=== PATIENT | female | born 1970 | race Two or more races ===

== ENCOUNTER 2020-06-03 13:50 | Inpatient (IN) | payer MEDICAID ==
[~2020-06-03] VITALS: Ht 154.9 cm; Wt 88.5 kg
--- NOTE | 2020-06-03 14:03 | NUR ---
ED Nurse Note: pt to room, aware of pt
--- NOTE | 2020-06-03 14:13 | Emergency Room Report ---
History of Present Illness General Chief Complaint: Dyspnea/Respdistress Source: Patient Present Illness HPI 49-year-old female with history of asthma presents with chief complaint of shortness of breath and wheezing. She states that despite her albuterol inhalers, she has had shortness of breath since last night. Denies chest pain, hemoptysis, fevers, chills, Covid contacts, recent travel or antibiotic use. She denies recent history of hospitalization or intubation. Denies recent trauma, surgery, or immobilization. The patient's symptoms were gradual onset, severity was moderate, duration since 2 days. Quality: Wheezing Past medical history: Asthma Past surgical history: Denies Smoking: Denies Alcohol use: Denies Drug use: Denies Review of systems: CONST: No fevers or chills, No night sweats PULMONARY: No productive cough, ++ shortness of breath CARDIAC: No chest pain, No palpitations GI: No vomiting, No diarrhea , No melena_or_BRBPR : No dysuria, No hematuria, No discharge NEURO: No new_focal_weakness_or_numbness, No confusion, No vision changes 14 point Review of Systems is otherwise negative except per HPI Physical Exam: GENERAL: Awake_alert_ nontoxic, no acute distress Spo2 95% on RA -normal EYES: Extraocular muscles are intact. Conjunctivae clear. Lids without swelling ENT: External nose and ear normal_in_appearance. Oropharynx clear. Head_atraumatic, Moist_oral_mucosa NECK: No JVD. No meningismus. No thyromegaly. Supple. Trachea midline RESP: Increased work of breathing. Speaking in short clipped sentences. Subcostal retractions. Diffuse inspiratory and expiratory wheezing Left lower lobe crackles CARDIAC: Regular rate and regular rhytm. No_significant pedal edema. ABDOMEN: Soft. Nondistended. Nontender_No_rebound_or_guarding. MSK: Normal muscle tone, without rigidity. Extremities without asymmetric deformity or swelling. SKIN: Warm and dry. No visible cyanosis or pallor NEUROLOGIC: Alert, oriented x3. Motor_and_sensation_grossly_intact. No truncal ataxia. Gait_normal Psych: Normal mood and affect, normal judgment and insight - COORDINATION OF CARE Case was discussed with: Patient , Patient's Physician Any labs and imaging that were ordered were interpreted as part of the medical decision making: Medical Decision Making/Plan: Differential diagnosis includes: asthma exacerbation, pneumonia, bronchitis, pneumothorax, pulmonary embolism, pulmonary edema among others. The patients presentation seems most consistent with an asthma exacerbation given their wheezing on exam with a history of asthma. CXR shows left lower lobe pneumonia. No evidence of pneumothorax, or pulmonary edema. Covid swab negative. Labs are unremarkable. The patient has no significant risk factors for pulmonary embolism, and has a more likely alternate cause given their wheezing on exam, thus further workup was deferred given that PE is unlikely. The patient was given albuterol, atrovent, steroids, and had serial reassessments. Although the patient has had some minimal improvement in their symptoms, they still have persistent severe dyspnea and their symptoms are unlikely to resolve with typical outpatient therapy so the patient will be admitted for further intensive serial treatments with bronchodilators and close observation. I spoke with Dr. Urban, and reviewed the patients presentation, workup, results, and treatment. They will admit the patient for further care and evaluation, and assume care of the patient at this time. - CRITICAL CARE NOTE - I spent 35 minutes of critical care time. This time excludes any separately billable procedures. Given the patients presentation with status_asthmaticus, there existed the potential for imminent deterioration in the patient's condition due to respiratory compromise. Organ systems at risk for failure without immediate intervention include pulmonary / respiratory. This time was spent reviewing the patients records, reviewing vital signs, reassessing the patients clinical status, discussing the case and care with staff and consultants, and performing high-complexity medical decision making. I considered the addition of positive airway pressure ventilation at this time, but decided to defer it at this time given the possibility of breath stacking. I also considered the need for intubation, but at this time the patient is protecting their airway and maintaining their saturation on supplemental oxygen so will defer intubation at this time, although they will be closely monitored for any further deterioration. 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 [employer]ATION: No Patient History Last Menstrual Period: 3 weeks Now: No Nursing Documentation-PMH Past Medical History: No History, Except For Hx Hypertension: Yes Hx Asthma: Yes Physical Exam Vital Signs Date Time Temp Pulse Resp B/P (MAP) Pulse Ox O2 Delivery O2 Flow Rate FiO2 06/03/20 13:54 98.1 85 32 147/78 (101) 95 Room Air Sp02 EP Interpretation: reviewed, normal Medical Decision Making Diagnostic Impression: Primary Impression: Asthma exacerbation Additional Impressions: Wheezing Anemia EKG Diagnostic Results Troponin ordered: Yes When was troponin ordered?: Jun 03, 2020 EKG Time: 14:28 Rate: normal Rhythm: NSR ST Segments: no acute changes ASA given to the pt in ED: No - NO ACS PA Scribe Text 12-lead EKG (interpreted by me) Time: 1513 Indication: Rhythm analysis Tracing visualized and Interpreted by me. Rhythm: Normal sinus rhythm Rate: 68 bpm QTc: 431 Morphology: No_significant_ST_elevations_or_depressions, No STEMI Impression: Normal_sinus_rhythm_without_significant_abnormality Rhythm Strip Diag. Results Rhythm Strip Time: 14:29 EP Interpretation: yes Rate: 95 Rhythm: NSR, no PVC's, no ectopy Chest X-Ray Diagnostic Results Chest X-Ray Diagnostic Results : PA Scribe Text Chest X-Ray: Views: [ 1 ] view(s) Indication: SOB Findings: Normal heart size. Mediastinum normal. No pneumothorax Impression: Left lower lobe pneumonia versus atelectasis The X-ray(s) were independently viewed and interpreted contemporaneously Electronically signed by Lesley gordon DO Reevaluation Time: 15:30 Last Vital Signs Date Time Temp Pulse Resp B/P (MAP) Pulse Ox O2 Delivery O2 Flow Rate FiO2 06/03/20 13:54 98.1 85 32 147/78 (101) 95 Room Air Status: improved Disposition: ADMITTED INPATIENT Admit Decision Time: 16:00 Condition: Stable Lesley Barreto D.O. Jun 03, 2020 14:13
[2020-06-03] MEDS ORDERED: Ipratropium Bromide Inhaler INH SCH (14:15)
[2020-06-03] MEDS ORDERED: dexAMETHasone 10mg/ml Inj IV ONE (14:15)
[2020-06-03] MEDS ORDERED: Azithromycin 250mg tab ORAL ONE (14:15)
[2020-06-03] MEDS ORDERED: Albuterol 90mcg Inhaler 8gm INH PRN (14:15)
[2020-06-03] MEDS ORDERED: cefTRIAXone 1 GM in NS 55 ML IVPB ONE (14:15)
[2020-06-03] MEDS ORDERED: Albuterol/Ipratropium 3ml neb ONE (14:47)
[2020-06-03] MEDS ORDERED: ALBUTEROL SULF8.5 G1 INH (14:48)
--- NOTE | 2020-06-03 14:50 | Diagnostic Imaging Report ---
EXAM: XR Chest, 1 View CLINICAL HISTORY: SOB TECHNIQUE: Frontal view of the chest. COMPARISON: None FINDINGS: Hardware: None. Lungs/pleura: Mild left lower lobe opacity may represent atelectasis versus pneumonia. No other focal consolidation. No pleural effusion or pneumothorax. Heart/mediastinum: Normal. No cardiomegaly. Soft tissues: Unremarkable. Bones: No acute fracture. Upper abdomen: Normal. IMPRESSION: Mild left lower lung opacity may represent atelectasis versus pneumonia.
--- NOTE | 2020-06-03 14:53 | NUR ---
ED Nurse Note: RT at bed side
[2020-06-03 15:02] VITALS: BP 148/89
[2020-06-03 15:03] LABS: ANION GAP 7 mmol/L (5-15); BLOOD UREA NITROGEN 12 mg/dL (7-18); CALCIUM 8.3 MG/DL (8.5-10.1); CARBON DIOXIDE 29 MMOL/L (21-32); CHLORIDE 102 MMOL/L (98-107); CREATININE 0.6 MG/DL (0.55-1.30); EOSINOPHILS % (AUTO) 6.7 % (0.0-3.0); HEMATOCRIT 32.2 % (37.0-47.0); HEMOGLOBIN 9.5 G/DL (12.0-16.0); LYMPHOCYTES % (AUTO) 15.2 % (20.0-45.0); MEAN CORPUSCULAR VOLUME 64 FL (80-99); MONOCYTES % (AUTO) 7.7 % (1.0-10.0); NEUTROPHILS % (AUTO) 69.4 % (45.0-75.0); PLATELET COUNT 326 K/UL (150-450); POTASSIUM 3.8 MMOL/L (3.5-5.1); RED BLOOD COUNT 5.02 M/UL (4.20-5.40); RED CELL DISTRIBUTION WIDTH 16.3 % (11.6-14.8); SODIUM 137 MMOL/L (136-145); WHITE BLOOD COUNT 6.8 K/UL (4.8-10.8)
[2020-06-03] MEDS: Albuterol/Ipratropium 3ml neb HHN SCH ×3 (15:07→19:20)
--- NOTE | 2020-06-03 15:07 | NUR ---
ED Nurse Note:pt. came from home with asthma exacerbation ,covid swab is negative, VSS, blood sent to labs, placed on associate professor of automation,
[2020-06-03 15:13] LABS: ALANINE AMINOTRANSFERASE 19 U/L (12-78); ALBUMIN 3.1 G/DL (3.4-5.0); ALBUMIN/GLOBULIN RATIO 0.8 (1.0-2.7); ALKALINE PHOSPHATASE 84 U/L (46-116); ASPARTATE AMINO TRANSFERASE 15 U/L (15-37); BILIRUBIN,TOTAL 0.3 MG/DL (0.2-1.0); PHOSPHORUS 2.4 MG/DL (2.5-4.9)
[2020-06-03 15:24] LABS: CREATINE KINASE 126 U/L (26-308); FERRITIN 6 NG/ML (8-388); LACTATE DEHYDROGENASE 443 U/L (81-234)
--- NOTE | 2020-06-03 16:46 | NUR ---
REPORT GIVEN TO JUSTEN GOFF IN MED /SURG UNIT PATIENT IS TO BE TRANSFERD TO ROOM 420-2 VIA RNEY
--- NOTE | 2020-06-03 16:50 | NUR ---
NURSE NOTES: received report from SHELL Hernandez, ER
--- NOTE | 2020-06-03 17:05 | NUR ---
NURSE NOTES: patient was admitted from ER to room 420-[address]Alfred Box care. Dx of difficult breathing. no respiratory distress noted on room air. patient breathes comfortably after breathing treatment at ER. no pain at this time. A&Ox4, verbally responsive. IV on LAC 22 saline lock. no skin issues. Covid negative. ambulatory. bed in the lowest position and locked. call light within reach, will continue to provide plan of care. Notified Dr. Lis Box for admission orders. MD will call in a few minutes.
[2020-06-03 17:10] VITALS: BP 138/96
--- NOTE | 2020-06-03 17:10 | NUR ---
NURSE NOTES: VS 138/96, 80, 20, 95% om room air. 98.6
[2020-06-03 17:12] LABS: APPEARANCE,URINE CLEAR; BILIRUBIN, URINE NEGATIVE (NEGATIVE); COLOR,URINE PALE YELLOW; GLUCOSE, URINE (UA) NEGATIVE (NEGATIVE); KETONES,URINE NEGATIVE (NEGATIVE); LEUKOCYTE ESTERASE ,URINE 2+ (NEGATIVE); NITRITE,URINE NEGATIVE (NEGATIVE); PH,URINE 6 (4.5-8.0); PROTEIN,URINE NEGATIVE (NEGATIVE); UROBILINOGEN,URINE NORMAL MG/DL (0.0-1.0)
[2020-06-03] MEDS ORDERED: Zolpidem 5mg tab ORAL PRN (18:00)
[2020-06-03] MEDS ORDERED: Piperacillin/Tazobactam 2.25 GM in D5W 55 ML IV SCH (18:00)
--- NOTE | 2020-06-03 19:20 | NUR ---
NURSE NOTES: Received report from SHELL Keith. AAO x 4, on room air without respiratory distress. Denies pain or discomfort. Able to make needs known. Breathing treatment with RT at bedside. IV site intact and patent. Bed locked, lowest position, alarm on, side rails up, call light within reach. Will continue to monitor.
--- NOTE | 2020-06-03 19:23 | NUR ---
NURSE HAND-OFF: Important Events on Shift new admission, breathing treatment, IV ATB Patient Status: stable,. no SOB at this time Diet: regular Pending Orders: n/a Pending Results/Labs:n/a Pending MD notification:n/a Latest Vital Signs: Temperature 98.6 , Pulse 80 , B/P 138 /96 , Respiratory Rate 20 , O2 SAT 95 , Room Air, O2 Flow Rate . Vital Sign Comment: stable Latest Arroyo Fall Score: 20 Fall Risk: Low Risk Safety Measures: Call light Within Reach, Bed Alarm Zone 1, Side Rails Side Rails x2, Bed position Low and Locked. Fall Precautions: Report given to SHELL Eric
[2020-06-03 20:00] VITALS: BP 155/95
[2020-06-03] MEDS: Solu-MEDROL 40mg Inj IVP SCH (20:25)
[2020-06-03] MEDS: Zosyn 3.375gm q8h **Extended infusion IVPB SCH ×2 (21:19)
[2020-06-04] VITALS: BP 153/73
[2020-06-04 04:00] VITALS: BP 148/105
[2020-06-04] MEDS: Zosyn 3.375gm q8h **Extended infusion IVPB SCH ×6 (05:11→21:01)
--- NOTE | 2020-06-04 06:21 | NUR ---
NURSE HAND-OFF: Important Events on Shift:No SOB or respiratory distress Patient Status: stable Diet: reg Pending Orders: Pending Results/Labs: Pending MD notification: Latest Vital Signs: Temperature 99.5 , Pulse 90 , B/P 148 /105 , Respiratory Rate 19 , O2 SAT 93 , Room Air, O2 Flow Rate 2.0 . Vital Sign Comment: Latest Arroyo Fall Score: 20 Fall Risk: Low Risk Safety Measures: Call light Within Reach, Bed Alarm Zone 1, Side Rails Side Rails x2, Bed position Low and Locked. Fall Precautions: Elzbieta Norris Patient Fall Education Addendum: 06/04/20 at 0734 by NAS SNELL RN RN HAND-OFF: Report given to
--- NOTE | 2020-06-04 07:34 | NUR ---
NURSE NOTES: Pt c/o SOB and wheezing sound noted. Applied NC 2L and HOB elevated
[2020-06-04] MEDS: Albuterol/Ipratropium 3ml neb HHN SCH ×4 (07:53→20:01)
[2020-06-04 08:00] VITALS: BP 151/89
--- NOTE | 2020-06-04 08:02 | NUR ---
NURSE NOTES: Received report from Keturah GOFF, pt a/a/o x4 laying in bed with no signs of distress or other issues at this time. patient stated that starting having cough last night. no skin issues noted. IV on the right arm gauge#22. call light within reach, bed in lowest position. side rales up x2. I will f/u as needed.
[2020-06-04] MEDS: Solu-MEDROL 40mg Inj IVP SCH ×2 (08:26→20:12)
--- NOTE | 2020-06-04 10:32 | History & Physical ---
History and Physical History & Physicial Hp dictated # [id number] Akira Box MD Jun 04, 2020 10:32
[2020-06-04] MEDS ORDERED: guaiFENesin 100mg/5ml Liq ud ORAL PRN (10:45)
--- NOTE | 2020-06-04 11:45 | History and Physical Report ---
DATE OF ADMISSION: 06/03/2020 CHIEF COMPLAINT: Shortness of breath. HISTORY OF PRESENT ILLNESS: The patient is a 49-year-old female with history of asthma who started to get short of breath about two days ago. She states that she could not even get the inhaler down her lung. She usually takes albuterol. Last night, her shortness of breath got much worse and she was panicking and finally came to the emergency room. She was admitted with asthma exacerbation. PAST MEDICAL HISTORY: The patient has had asthma for about more than 20 years, otherwise she does not have any history of diabetes or hypertension. MEDICATIONS: Reviewed in the EMR. ALLERGIES: No known drug allergies. SOCIAL HISTORY: No history of smoking or alcohol abuse. The patient lives with a friend. REVIEW OF SYSTEMS: As above. The patient did not have any sputum production. PHYSICAL EXAMINATION: GENERAL: The patient is a 49-year-old female. She feels better. VITAL SIGNS: Blood pressure is 151/89, pulse 67, temperature 97.7, and respiratory rate is 20. HEENT: [place] conjunctivae. Anicteric sclerae. NECK: Supple. LUNGS: Diffuse expiratory wheezing. HEART: S1 and S2 without murmurs or rubs. ABDOMEN: Soft, nontender. EXTREMITIES: No cyanosis or edema. LABORATORY FINDINGS: CBC shows a WBC of 6900, hematocrit is 32.2, hemoglobin is 9.5, platelets 326,000. Chemistry panel shows serum sodium of 137, potassium 3.8, chloride 102, BUN 12, creatinine 0.6, blood sugar 121. UA shows 5 to 10 wbc's per high-power field, no protein. ASSESSMENT: This is a 49-year-old female who was admitted for acute asthma exacerbation. Chest x-ray also shows some mild left lower lung opacity which may represent atelectasis versus pneumonia. She may have also urinary tract infection based on leukocyturia. PLAN: The patient was started on IV steroids, bronchodilators, antibiotics, oxygen. Based on her clinical findings and progresses, adjustment will be made in the patient's regimen. Akira Box M.D. DR: Bebe JOB#: [id number] CC:
[2020-06-04 12:00] VITALS: BP 146/82
[2020-06-04 16:00] VITALS: BP 138/77
--- NOTE | 2020-06-04 18:59 | NUR ---
NURSE HAND-OFF: Important Events on Shift: Patient Status: stable/ full code Diet: regular Pending Orders: [] Pending Results/Labs:am labs Pending MD notification: Latest Vital Signs: Temperature 97.7 , Pulse 88 , B/P 138 /77 , Respiratory Rate 17 , O2 SAT 95 , Nasal Cannula, O2 Flow Rate 2.0 . Vital Sign Comment: stable Latest Arroyo Fall Score: 20 Fall Risk: Low Risk Safety Measures: Call light Within Reach, Bed Alarm Zone 1, Side Rails Side Rails x2, Bed position Low and Locked. Fall Precautions: pt is able to ambulate with steady gait [place] Patient Fall Education Report given to Keturah GOFF, pt in stable condition.
--- NOTE | 2020-06-04 19:40 | NUR ---
NURSE NOTES: Received report from SHELL Pennington. Sleeping in bed, on room air without respiratory distress. Able to make needs known. Breathing treatment with RT at bedside. IV site intact and patent. Bed locked, lowest position, alarm on, side rails up, call light within reach. Will continue to monitor.
[2020-06-04 20:00] VITALS: BP 144/79
--- NOTE | 2020-06-04 20:14 | Consultation ---
DATE OF CONSULTATION: 06/04/2020 PULMONARY CONSULTATION CONSULTING PHYSICIAN: Carlos Elder MD. HISTORY OF PRESENT ILLNESS: This is a 49-year-old female, history of asthma. She came to the hospital with exacerbation of asthma. She states she has albuterol at home, but no inhaled steroids and she has reactions to steroids. She was admitted to the hospital for aspiration, COPD/asthma. PAST MEDICAL HISTORY: Asthma only. The patient denies any headaches, hematemesis, melena, or hematochezia. PHYSICAL EXAMINATION: GENERAL: Reveals a 49-year-old. VITAL SIGNS: Blood pressure is 130/70, heart rate 84, respiratory rate 18, O2 saturation 98% on 2 L of oxygen. HEENT: Unremarkable. LUNGS: Clear breath sounds bilaterally. ABDOMEN: Soft. EXTREMITIES: Nonfocal. She has a few rhonchi. LABORATORY DATA: Lab testing shows normal CBC and BMP. IMAGING STUDIES: Notable for an x-ray chest, which showed mild left lower lobe opacity suspicious for pneumonia. IMPRESSION: 1. Left lower lobe pneumonia. 2. Asthma with exacerbation. DISCUSSION: Admit to the hospital. Continue broad-spectrum antibiotics, breathing treatments, pulmonary hygiene, IV steroids, oxygen. We will follow carefully. Carlos Elder M.D. DR: Mariam JOB#: [id number] CC:
[2020-06-05] VITALS: BP 153/90
[2020-06-05 04:00] VITALS: BP 144/77
[2020-06-05] MEDS: Zosyn 3.375gm q8h **Extended infusion IVPB SCH ×2 (05:00)
--- NOTE | 2020-06-05 06:56 | NUR ---
NURSE HAND-OFF: Important Events on Shift:monitor SOB Patient Status: stable Diet: reg Pending Orders: Pending Results/Labs: Pending MD notification: Latest Vital Signs: Temperature 98.2 , Pulse 79 , B/P 144 /77 , Respiratory Rate 16 , O2 SAT 94 , Nasal Cannula, O2 Flow Rate 2.0 . Vital Sign Comment: [] Latest Arroyo Fall Score: 20 Fall Risk: Low Risk Safety Measures: Call light Within Reach, Bed Alarm Zone 1, Side Rails Side Rails x2, Bed position Low and Locked. Fall Precautions: Elzbieta Norris Patient Fall Education Addendum: 06/05/20 at 0735 by NAS SNELL RN RN HAND-OFF: Report given to
[2020-06-05] MEDS: Albuterol/Ipratropium 3ml neb HHN SCH ×2 (07:34→12:37)
--- NOTE | 2020-06-05 07:45 | NUR ---
NURSE NOTES: Received report from SHELL Eric. Patient is in bed, awake and oriented x 4, no SOB, bed in lowest position with breaks engaged and alarm on, no pain or discomfort per assessment, IV line present on PATRICK, on room air, will continue to monitor and proceed with plan of care, call light within reach
[2020-06-05 08:00] VITALS: BP 142/75
[2020-06-05] MEDS: Solu-MEDROL 40mg Inj IVP SCH (08:38)
[2020-06-05 12:00] VITALS: BP 140/84
--- NOTE | 2020-06-05 12:53 | NUR ---
NURSE NOTES: Patient was discharged in stable condition at 1253 pm, discharge paper works signed, no missing belongings reported, patient was given prescriptions for new meds from Dr. Akira Box, no c/o any discomfort or pain upon discharge, pt alert and oriented x 4 with steady gait. IV line and ID band removed.
--- NOTE | 2020-06-05 13:47 | Pulmonology Progress Note ---
Subjective Interval Events: Feeling better Constitutional: Reports: no symptoms HEENT: Repors: no symptoms Respiratory: Reports: no symptoms Cardiovascular: Reports: no symptoms Gastrointestinal/Abdominal: Reports: no symptoms Genitourinary: Reports: no symptoms Allergies: Coded Allergies: CODEINE (Verified Allergy, Severe, 06/03/20) nausea Objective Last 24 Hour Vital Signs Date Time Temp Pulse Resp B/P (MAP) Pulse Ox O2 Delivery O2 Flow Rate FiO2 06/05/20 12:38 74 18 99 Room Air 21 70 16 95 06/05/20 12:00 98.1 97 20 140/84 (102) 96 06/05/20 09:00 Nasal Cannula 2.0 06/05/20 08:00 99.0 90 19 142/75 (97) 93 06/05/20 07:34 98 Room Air 21 06/05/20 07:32 80 22 99 Room Air 21 72 18 94 06/05/20 04:00 98.2 79 16 144/77 (99) 94 06/05/20 00:00 98.4 80 16 153/90 (111) 95 06/04/20 21:00 Nasal Cannula 2.0 06/04/20 20:11 86 20 99 Room Air 21 06/04/20 20:01 96 Room Air 21 06/04/20 20:01 85 20 96 Room Air 21 06/04/20 20:00 97.7 82 18 144/79 (100) 95 06/04/20 16:00 97.7 88 17 138/77 (97) 95 06/04/20 15:39 89 20 98 Room Air 21 88 20 93 Intake and Output 06/04/20 06/05/20 19:00 07:00 Intake Total 1160 ml 400 ml Balance 1160 ml 400 ml Intake Oral 1160 ml Other 400 ml # Voids 2 2 # Bowel Movements 1 General Appearance: no acute distress HEENT: normocephalic Respiratory: chest wall non-tender Cardiovascular: normal peripheral pulses Abdomen: normal bowel sounds Microbiology Date/Time Source Procedure Growth Status 06/03/20 16:25 Urine,Clean Catch Urine Culture - Preliminary NO GROWTH Resulted 06/03/20 14:15 Nasopharynx SARS-CoV-2 RdRp Gene Assay - Final Complete Current Medications Medications (Trade) Dose Ordered Sig/Delicia Route PRN Reason Start Time Stop Time Status Last Admin Dose Admin Acetaminophen (Tylenol) 650 mg Q4H PRN ORAL Mild Pain (Pain Scale 1-3) 06/03/20 18:00 07/03/20 17:59 Albuterol/ Ipratropium (Albuterol/ Ipratropium) 3 ml QIDRT HHN 06/03/20 19:00 06/08/20 18:59 06/05/20 12:37 Dextrose (Dextrose 50%) 25 ml Q30M PRN IV Hypoglycemia 06/03/20 18:00 09/01/20 17:59 Dextrose (Dextrose 50%) 50 ml Q30M PRN IV Hypoglycemia 06/03/20 18:00 09/01/20 17:59 Guaifenesin (Robitussin) 100 mg Q4H PRN ORAL For Cough 06/04/20 10:45 09/02/20 10:44 Zolpidem Tartrate (Ambien) 5 mg HSPRN PRN ORAL Insomnia 06/03/20 18:00 06/10/20 17:59 Assessment/Plan Assessment/Plan IMPRESSION: 1. Left lower lobe pneumonia. 2. Asthma with exacerbation. DISCUSSION: Continue broad-spectrum antibiotics, breathing treatments, pulmonary hygiene, IV steroids, oxygen. I will follow carefully. Discussed with Dr. Isauro Craig planning for home Shirley Loredo Omar Syed MD Jun 05, 2020 13:47
--- NOTE | 2020-06-05 17:01 | NUR ---
CASE MANAGEMENT:INITIAL REVIEW 49 YR OLD FEMALE FROM HOME CC;RESPIRATORY DISTRESS. DYSPNEA. SI;ASTHMA EXACERBATION 98.6 90 22 1440/80 95% 2L NC BG 121 PHOS 2.4 CA 8.3 ALB 3.1 UA+ LEUKOCYTE ESTERASE, WBC, SQUAMOUS EPITH CELLS COVID RAPID ~ NEGATIVE CXR ~ Mild left lower lung opacity may represent atelectasis versus pneumonia. IS;ROCEPHIN IV DECADRON IV MAG SULFATE IV ZITHROMAX IV ATROVENT INH ADMITTED TO MED SURG MED SURG STATUS DCP;PATIENT IS FROM HOME
--- NOTE | 2020-06-06 14:37 | Cardiology Report ---
APPROVED REPORT EKG Measurement Heart [id number] <Conclusion> Normal sinus rhythm Normal ECG
--- NOTE | 2020-06-07 08:44 | Discharge Summary ---
Discharge Summary Discharge Summary _ DATE OF ADMISSION: 06/03/2020 DATE OF DISCHARGE: 06/05/2020 DISCHARGED BY: Dr. Akira Box REASON FOR ADMISSION: 49 years old female with past medical history of asthma , presented with complaint of shortness of breath and wheezing. Patient reported shortness of breath since the last night despite use of albuterol inhaler. She denied chest pain. No hemoptysis. No fever or chills. Rapid COVID-19 was negative. Vital signs were stable. Laboratory work-up revealed no leukocytosis , hemoglobin 9.5 , hematocrit 32.2. Stable electrolytes and renal parameters. Glucose 121. Lactic acid 1.3. Stable LFT. Troponin negative. EKG revealed sinus rhythm, no acute ischemic changes . Urinalysis revealed borderline pyuria and few bacteria , +1 leukocyte esterase. Chest x-ray demonstrated mild left lower lung opacity, possibly representing atelectasis versus pneumonia. Patient subsequently admitted with asthma exacerbation, possible pneumonia for further management. CONSULTANTS: pulmonary Dr. Elder HOSPITAL COURSE: Patient admitted to medical surgical floor . Patient started on IV steroids. Patient started on nebulizing treatment with bronchodilator . Telecommunication Tower Technician followed. Per news reel cameraman patient had left lower lobe pneumonia. Patient started on empiric antibiotic. Supplemental oxygen provided and titrated to keep pulse oximetry above 92%. Blood cultures were negative. Urine culture revealed mixed urogenital contaminants. Antitussive provided as needed. As patient clinically improved, steroid tapered. Patient clinically stabilized and was ready for discharge home. FINAL DIAGNOSES: Acute asthma exacerbation Left lower lobe pneumonia DISCHARGE MEDICATIONS: See Medication Reconciliation list. DISCHARGE INSTRUCTIONS: Patient was discharged home. Follow-up with a primary care provider in 1 week. I have been assigned to dictate discharge summary for this account. I was not involved in the patient's management. Tiera Hooker NP Jun 07, 2020 08:44
--- NOTE | 2020-06-07 14:45 | NUR ---
INSURANCE DC SUMMARY FAXED TO [facility] [phone] PH [phone] [facility] [phone] PH [phone]
== END 2020-06-05 13:00 | disposition home or self-care (01) | DRG 139 ==
LOC: EMR 14:15 → EDBEDREQ 16:37 → 4E 16:40 → EMR 16:54
DX: J18.9 Pneumonia, unspecified organism (principal); J45.901 Unspecified asthma with (acute) exacerbation; N39.0 Urinary tract infection, site not specified; J45.909 Unspecified asthma, uncomplicated; Z88.6 Allergy status to analgesic agent
CPT/HCPCS: 36415; 71045; 80053; 81003; 82550; 82728; 83605; 83615; 83690; 83735; 83880; 84100; 84484; 84702; 85025; 85610; 85730; 86140; 87040; 87086; 93005; 94640; 96365; 96375; 99285; J7620; U0002